=== PATIENT | male | born 1965 | race Caucasian/White ===

== ENCOUNTER 2020-07-10 00:33 | Observation (INO) ==
[2020-07-10] MEDS ORDERED: Acetaminophen 325 MG TABLET PO PRN (04:47)
[2020-07-10] MEDS ORDERED: Ondansetron 4 MG/2 ML VIAL IVP PRN (04:47)
[2020-07-10] MEDS ORDERED: Melatonin 3 MG TABLET PO PRN (04:47)
[2020-07-10] MEDS ORDERED: Naloxone 0.4 MG/ML INJ IVP PRN (04:47)
[2020-07-10 06:06] LABS: Basophils % 0.5 %; Eosinophils # 0.2 K/mcL (0.0-0.6); Hematocrit 47.9 % (37.5-50.1); Hemoglobin 16.2 g/dL (12.9-16.9); Immature Granulocytes % 0.3 % (0-4); Lymphocytes # 2.7 K/mcL (0.6-4.6); Lymphocytes % 35.7 %; Mean Corpuscular HGB Conc 33.8 g/dL (31.6-35.5); Mean Corpuscular Hemoglobin 32.5 pg (28.0-33.3); Mean Platelet Volume 8.8 fL (9.4-12.4); Monocytes # 0.5 K/mcL (0.0-1.3); Monocytes % 5.9 %; Neutrophils # 4.3 K/mcL (1.6-8.9); Platelet Count 174 K/mcL (140-400); Red Blood Count 4.99 M/mcL (4.19-5.50); Red Cell Distribution Width 13.9 % (11.5-14.5); Segmented Neutrophils % 55.6 %; White Blood Count 7.6 K/mcL (4.3-11.1)
[2020-07-10 06:14] LABS: INR 1.2; Prothrombin Time 13.9 Seconds (9.4-12.1)
[2020-07-10 06:27] LABS: Alanine Aminotransferase 39 Units/L (7-52); Albumin 4.3 g/dL (3.5-5.7); Albumin/Globulin Ratio 1.4 (1.1-2.2); Alkaline Phosphatase 61 Units/L (34-104); Aspartate Amino Transferase 33 Units/L (13-39); BUN/Creatinine Ratio 15 (6-26); Bilirubin,Total 0.9 mg/dL (0.3-1.0); Blood Urea Nitrogen 14 mg/dL (6-20); Calcium 9.7 mg/dL (8.6-10.3); Carbon Dioxide 26 mEq/L (23-29); Chloride 98 mEq/L (98-107); Glucose 103 mg/dL (70-105); Magnesium 1.9 mg/dL (1.6-2.6); Osmolality,Calculated 283 (280-300); Phosphorous 3.1 mg/dL (2.7-4.5); Potassium 3.7 mEq/L (3.5-5.1); Sodium 136 mEq/L (136-145); Total Protein 7.3 g/dL (6.4-8.9); eGFR For African Americans > 60 (> 60); eGFR For Non-African Americans > 60 (> 60)
[2020-07-10] MEDS ORDERED: Regadenoson 0.4 MG/5 ML SYRINGE IVP ONE (07:13)
[2020-07-10] MEDS: Aspirin 81 MG TAB.CHEW PO SCH (10:03)
[2020-07-10] MEDS ORDERED: Perflutren Lipid Microsphere 1.3 ML in 0.9 % Sodium Chloride 8.7 ML IVP PRN (11:05)
[2020-07-10] MEDS: Isosorbide MONOnitrate (24 HR) 30 MG TAB.ER.24H PO SCH (12:40)
[2020-07-10] MEDS: Nicotine 21 MG PATCH.TD24 TD SCH (15:31)
[2020-07-10] MEDS: lisinopriL 20 MG TABLET PO SCH (15:31)
[2020-07-10] MEDS: *HR* Heparin 5,000 UNIT/ML VIAL SQ SCH (16:59)
[2020-07-11] MEDS: *HR* Heparin 5,000 UNIT/ML VIAL SQ SCH (05:12)
[2020-07-11 05:42] LABS: Mean Corpuscular Volume 97.7 fL (83.0-100.0)
[2020-07-11 05:43] LABS: Hematocrit 46.3 % (37.5-50.1); Immature Platelets 2.5 % (1.1-6.1); Mean Corpuscular HGB Conc 32.4 g/dL (31.6-35.5); Mean Corpuscular Hemoglobin 31.6 pg (28.0-33.3); Red Blood Count 4.74 M/mcL (4.19-5.50); White Blood Count 6.9 K/mcL (4.3-11.1)
[2020-07-11 06:04] LABS: Alanine Aminotransferase 30 Units/L (7-52); Albumin 3.8 g/dL (3.5-5.7); Albumin/Globulin Ratio 1.3 (1.1-2.2); Alkaline Phosphatase 53 Units/L (34-104); Aspartate Amino Transferase 24 Units/L (13-39); BUN/Creatinine Ratio 18 (6-26); Bilirubin,Total 0.8 mg/dL (0.3-1.0); Blood Urea Nitrogen 15 mg/dL (6-20); Carbon Dioxide 25 mEq/L (23-29); Chloride 102 mEq/L (98-107); Glucose 90 mg/dL (70-105); Osmolality,Calculated 284 (280-300); Potassium 3.7 mEq/L (3.5-5.1); Sodium 137 mEq/L (136-145); Total Protein 6.8 g/dL (6.4-8.9); eGFR For African Americans > 60 (> 60); eGFR For Non-African Americans > 60 (> 60)
[2020-07-11 06:06] LABS: Chol/HDL Ratio 7.7 (0-4.9)
[2020-07-11 08:13] LABS: Estimated Average Glucose 123 mg/dl; Hemoglobin A1C 5.9 %
[2020-07-11] MEDS: lisinopriL 20 MG TABLET PO SCH (10:08)
[2020-07-11] MEDS: Aspirin 81 MG TAB.CHEW PO SCH (10:08)
[2020-07-11] MEDS: Isosorbide MONOnitrate (24 HR) 30 MG TAB.ER.24H PO SCH (10:08)
[2020-07-11] MEDS ORDERED: Nitroglycerin 1,000 MCG/5 ML VIAL IV ONE (10:29)
[2020-07-11] MEDS ORDERED: Heparin 1,000 UNITS/500 mL 500 ML ONE (10:29)
[2020-07-11] MEDS ORDERED: ISOVUE-370 200 ML INFUS..BTL ONE (10:29)
[2020-07-11] MEDS ORDERED: 0.9 % Sodium Chloride 2,000 ML ONE (10:29)
[2020-07-11] MEDS ORDERED: *HR* Heparin 10,000 UNIT/10 ML VIAL ONE (10:29)
[2020-07-11] MEDS: Nicotine 21 MG PATCH.TD24 TD SCH (11:04)
[2020-07-11] MEDS ORDERED: *HR* FentaNYL (PF) 100 MCG/2 ML VIAL ONE (11:15)
[2020-07-11] MEDS ORDERED: *HR* Midazolam HCl 2 MG/2 ML VIAL ONE (11:15)
[2020-07-11 14:51] VITALS: BP 112/69
== END 2020-07-11 18:00 | disposition home or self-care (01) ==
LOC: 3BNU → SUATTDRO 04:38
PROVIDERS: ADMIT Family Medicine; ATTEND Nurse Practitioner